=== PATIENT | male | born 1985 | race African-American/Black ===

== ENCOUNTER 2022-07-26 15:17 | Emergency (ER) | payer MEDICAID ==
[~2022-07-26] VITALS: Ht 182.9 cm; Wt 59.0 kg
[2022-07-26 15:21] VITALS: BP 140/86
== END 2022-07-26 16:01 | disposition home or self-care (01) ==
LOC: ER 15:17
DX: F12.90 Cannabis use, unspecified, uncomplicated (principal)
CPT/HCPCS: 93005; 99283